=== PATIENT | female | born 1950 | race Caucasian/White ===

== ENCOUNTER → 2020-12-04 | Outpatient (CLI) | payer MEDICARE, BC | LOC: KOH-I 15:04 | DX: R05 Cough (principal) | CPT/HCPCS: 71046 ==

== ENCOUNTER → 2021-07-08 | Outpatient (CLI) | payer MEDICARE, BC | LOC: KOH-I 13:50 | DX: M25.562 Pain in left knee (principal); M25.561 Pain in right knee | CPT/HCPCS: 73562; 93971 ==